=== PATIENT | male | born 1985 | race African-American/Black ===

== ENCOUNTER 2021-08-06 20:37 | Emergency (ER) | payer SELFPAY ==
[2021-08-06] MEDS ORDERED: Boostrix 0.5 ML (Tdap) VIAL ONE (20:59)
[2021-08-06] MEDS ORDERED: Lidocaine 1% (PF) 30 ML VIAL ONE (21:42)
[2021-08-06 21:43] LABS: #Basophils 0.1 thou/uL (0.0-0.2); #Eosinphils 0.3 thou/uL (0.0-0.7); #Lymphocytes 3.6 thou/uL (1.20-3.40); #Monocytes 0.8 thou/uL (0.11-0.59); #Neutrophils 5.4 thou/uL (1.40-6.50); %Eosinophils 2.6 % (0.0-10.0); %Lymphocytes 35.7 % (21.0-51.0); %Monocytes 7.6 % (0.0-10.0); %Neutrophils 53.2 % (42.0-75.0); Hemoglobin 16.6 g/dL (14.0-18.0); Mean Corpuscular HGB CONC 35.6 g/dL (32.0-36.0); Mean Corpuscular Hemoglobin 33.6 pg (27.0-31.0); Mean Corpuscular Volume 94.4 fL (78.0-98.0); Platelet Count 223 thou/uL (130-400); RBC Distribution Width 11.5 % (11.5-14.5); Red Blood Cell (RBC) Count 4.95 mill/uL (4.70-6.10); White Blood Cell (WBC) Count 10.1 thou/uL (4.8-10.8)
[2021-08-06 22:05] LABS: ALT (SGPT) 36 U/L (8-55); AST (SGOT) 25 U/L (5-34); Albumin 4.4 g/dL (3.5-5.0); Alkaline Phosphatase 91 U/L (40-110); Anion Gap 15 mmol/L (10-20); BUN (Urea Nitrogen) 15 mg/dL (8.9-20.6); Bilirubin, Total 0.6 mg/dL (0.2-1.2); Calc. Creatinine Clearance 0 mL/min (70-130); Calcium 9.7 mg/dL (7.8-10.44); Carbon Dioxide 22 mmol/L (22-29); Chloride 101 mmol/L (98-107); Globulin 3.5 g/dL (2.4-3.5); Glucose 100 mg/dL (70-105); Potassium 3.4 mmol/L (3.5-5.1); Protein, Total 7.9 g/dL (6.0-8.3); Sodium 135 mmol/L (136-145)
[2021-08-06] MEDS ORDERED: Lisinopril 10 MG TAB ONE (23:00)
[2021-08-06] MEDS ORDERED: Lorazepam 1 MG TAB ONE (23:01)
[2021-08-07] MEDS ORDERED: Lisinopril 10 MG TAB ONE (00:16)
== END 2021-08-07 00:53 | disposition home or self-care (01) ==
LOC: ERS 20:37
DX: S61.411A Laceration without foreign body of right hand, initial encounter (principal); I10 Essential (primary) hypertension; R00.0 Tachycardia, unspecified; Z79.899 Other long term (current) drug therapy; W27.5XXA Contact with paper-cutter, initial encounter
CPT/HCPCS: 12042; 36415; 80053; 83880; 84443; 84484; 85025; 90715; 93005; J2001